=== PATIENT | male | born 1950 | race Caucasian/White ===

== ENCOUNTER 2025-07-22 18:24 | Emergency (ER) | payer OTHER, SELFPAY ==
[2025-07-22] VITALS (8 sets, daily range): BP systolic 109–181; BP diastolic 57–105; PULSE 68–89; RESP 12–20; TEMP 36.4–36.6; O2SAT 95–100; BMI 30.3
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
[2025-07-22 20:40] LABS: Hematocrit 41.0 % (40-54); Hemoglobin 14.6 g/dL (13.0-16.5); Immature Granulocytes Count 0.020 X10^3/uL (0.0-0.0); Mean Corp Hgb Conc 35.6 g/dL (32-36); Mean Corpuscular Volume 93.4 fL (80-94); Mean Platelet Vol. 9.9 fl (6.2-12.0); NRBC Flagged by Analyzer 0 % (0-5); Platelet Count 274 K/mm3 (150-450); RBC Distribution Width CV 12.7 % (11.6-14.6); RBC Distribution Width SD 43.8 fl (35.1-43.9); Red Blood Count 4.39 M/mm3 (4.6-6.2); White Blood Count 6.0 K/mm3 (4.4-11.0)
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
[2025-07-22 20:54] LABS: Prothrombin Time (Protime)PT. 13.3 SECONDS (11.7-14.9)
[2025-07-22 20:55] LABS: Partial Thromboplast Time 31.3 Seconds (24.1-36.2)
--- NOTE | 2025-07-22 20:58 | PCA ---
Pt accepted ER to ER at [facility], [facility] is 60-90 min ([phone])
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
[2025-07-22 21:03] LABS: Anion Gap 14 (5-15); BUN 13 mg/dL (4-19); BUN/Creat Ratio 16.9 RATIO (10-20); Calcium,Total 9.8 mg/dL (7.6-11.0); Carbon Dioxide 24.4 mmol/L (21.0-32.0); Chloride 100 mmol/L (98-108); Estimated Creatinine Clearance 89.94 ml/min (50-250); Glucose 104 mg/dL (70-99); Potassium 3.8 mmol/L (3.3-5.1)
--- NOTE | 2025-07-22 22:03 | ED.RN ---
report given to [place] ASHER @ [facility]
== END 2025-07-22 22:04 | disposition short-term general hospital (02) ==
LOC: ED 19:38
PROVIDERS: Emergency Provider Surgery; PCP Family Medicine; Visit Provider Surgery
DX: S06.5X0A Traumatic subdural hemorrhage without loss of consciousness, initial encounter (principal); E11.9 Type 2 diabetes mellitus without complications; S00.03XA Contusion of scalp, initial encounter; Z87.891 Personal history of nicotine dependence; R41.0 Disorientation, unspecified; I10 Essential (primary) hypertension; V19.3XXA Pedal cyclist (driver) (passenger) injured in unspecified nontraffic accident, initial encounter
CPT/HCPCS: 70450; 71045; 72125; 72170; 80048; 85025; 85610; 85730; 96374; 96375; 99285; A4216; J2405